=== PATIENT | female | born 1940 | race Caucasian/White ===

== ENCOUNTER 2025-03-20 20:43 | Emergency (ER) | payer MEDICARE, OTHER ==
[2025-03-20 21:19] LABS: #Basophils 0.3 thou/uL (0.0-0.2); #Eosinophils 0.3 thou/uL (0.0-0.7); #Lymphocytes 1.6 thou/uL (1.20-3.40); #Monocytes 1.0 thou/uL (0.11-0.59); #Neutrophils 7.7 thou/uL (1.40-6.50); %Basophils 2.9 % (0.0-1.0); %Eosinophils 2.6 % (0.0-10.0); %Lymphocytes 14.8 % (21.0-51.0); %Monocytes 8.9 % (0.0-10.0); %Neutrophils 70.8 % (42.0-75.0); Hematocrit 29.0 % (36.0-47.0); Hemoglobin 10.4 g/dL (12.0-16.0); Mean Corpuscular Hemoglobin 33.7 pg (27.0-31.0); Mean Corpuscular Volume 93.9 fl (78.0-98.0); Platelet Count 331 10x3/uL (130-400); Red Blood Cell (RBC) Count 3.09 mill/uL (4.20-5.40); White Blood Cell (WBC) Count 10.9 10x3/uL (4.8-10.8)
[2025-03-20 21:29] LABS: ALT (SGPT) 30 U/L (Less than 34); AST (SGOT) 34 U/L (11-34); Albumin 2.4 g/dL (3.1-4.5); Alkaline Phosphatase 114 U/L (40-110); Anion Gap 13 mmol/L (10-20); BUN (Urea Nitrogen) 18 mg/dL (9.8-20.1); Bilirubin, Total 0.8 mg/dL (0.3-1.2); Calc. Creatinine Clearance 0 mL/min (70-130); Calcium 8.6 mg/dL (7.8-10.44); Carbon Dioxide 22 mmol/L (23-31); Chloride 105 mmol/L (98-107); Globulin 3.6 g/dL (2.4-3.5); Glucose 86 mg/dL (83-110); Potassium 3.2 mmol/L (3.5-5.1); Sodium 137 mmol/L (136-145)
[2025-03-20 21:30] LABS: Troponin I Less than 0.010 ng/mL (< 0.028)
[2025-03-20] MEDS ORDERED: Apixaban 5 MG TAB ONE (21:34)
[2025-03-20] MEDS ORDERED: Acetaminophen 500 MG TAB ONE (22:14)
== END 2025-03-20 22:33 ==
LOC: NAV ERS 20:43
DX: I26.09 Other pulmonary embolism with acute cor pulmonale (principal); I10 Essential (primary) hypertension; Z95.0 Presence of cardiac pacemaker; Z86.718 Personal history of other venous thrombosis and embolism; Z79.82 Long term (current) use of aspirin; Z79.899 Other long term (current) drug therapy
CPT/HCPCS: 71045; 80053; 84484; 85025; 93005; Q0162